=== PATIENT | female | born 1980 | race Caucasian/White ===

== ENCOUNTER 2017-01-02 22:38 | Emergency (ER) | payer OTHER ==
[2017-01-03] MEDS ORDERED: diphenhydrAMINE 25 MG CAP As Ordered ONE (00:49)
[2017-01-03] MEDS ORDERED: predniSONE 20 MG TAB As Ordered ONE (00:49)
[2017-01-03] MEDS ORDERED: HYDROCORTISONE 1% CREAM 30 GM As Ordered ONE (00:50)
--- NOTE | 2017-01-03 01:01 | EDDOCDS ---
Physician Documentation [facility] Name: Sara William Age: 36 yrs Sex: Female : 1980 Arrival Date: 01/02/2017 Time: 22:38 Bed I2 / M2 Private MD: [facility], [place] - Adults Disposition: 01/03/17 00:48 Discharged to Home/Self Care. Impression: Rash and other nonspecific skin eruption - Diffuse. - Condition is Stable. - Discharge Instructions: Rash, [id number]. - Prescriptions for Benadryl 25 mg Oral Capsule - take 2 capsule by ORAL route every 6 hours As needed; 30 tablet. Prednisone 20 mg Oral Tablet - take 3 tablet by ORAL route once daily for 5 days; 15 tablet. - Medication Reconciliation, Local Pharmacy Hours form. - Follow up: Center - Adults [facility]; When: 1 - 2 days; Reason: Recheck today's complaints, Continuance of care. Follow up: Emergency Department; Reason: Worsening of conditions. - Problem is new. - Symptoms have improved. Historical: - Allergies: Amoxicillin; Morphine; PENICILLINS; - Home Meds: 1. control 2. unknown anxiety medication - PMHx: Anxiety; - PSHx: none; - Social history: Smoking status: Patient uses tobacco products, heavy tobacco smoker. No barriers to communication noted, The patient speaks fluent [place], Speaks appropriately for age. - Family history: Not pertinent. - : The pt / caregiver states he / she is not on anticoagulants. Home medication list is obtained from the patient. - Exposure Risk Screening:: None identified. 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 11 in. (149.86 cm) (M); Pain 9/10; 01/03 00:51 BP 126 / 81; Pulse 94; Resp 18; Temp 96.3; Pulse Ox 96% ; Pain 9/10; ajs 01/02 22:40 Body Mass Index 38.17 (85.73 kg, 149.86 cm) dem1 MDM: 00:47 predniSONE 60 mg PO once; administer with food or milk ordered. ef1 00:47 diphenhydrAMINE 50 mg PO once ordered. ef1 00:47 Hydrocortisone Cream 1 % 1 applic Topical once ordered. ef1 01:00 Financial registration complete. pm4 Administered Medications: 00:57 Drug: Hydrocortisone 1 applic [hydrocortisone 1 % topical cream (1 applic)] Route: yu Topical; Site: left forearm; 00:58 Drug: predniSONE 60 mg [prednisone 20 mg tablet (3 tabs)] Route: PO; yu 00:58 Drug: diphenhydrAMINE 50 mg [diphenhydramine 25 mg capsule (2 caps)] Route: PO; yu Signatures: Radha Gibbs, SHIRAC PAKuldipC ef1 Nils Vázquez RN RN Carlito Stokes, Reg Reg pm4 MTDD
--- NOTE | 2017-01-03 01:01 | EDDOCDS ---
Nurse's Notes [facility] Name: Sara William Age: 36 yrs Sex: Female : 1980 Arrival Date: 01/02/2017 Time: 22:38 Bed I2 / M2 Private MD: [facility] - Adults Diagnosis: Rash and other nonspecific skin eruption-Diffuse Presentation: 01/02 22:41 Presenting complaint: Patient states: Patient reports other day while sleeping, she jmb noted rash on top of head. Patient reports that she took benadryl and the area remains itching. Presenting complaint:. Onset: The symptoms/episode began/occurred 2 day(s) ago. This patient has not experienced a previous allergic reaction. Anaphylaxis evaluation, the patient reports or I have noted the following symptoms which indicate a significant risk of anaphylaxis: no signs or symptoms of anaphylaxis were noted. Adult Sepsis Screening: The patient does not have new or worsening altered mentation. Patient's respiratory rate is less than 22. Systolic blood pressure is greater than 100. Patient has a qSOFA score of 0- Negative Sepsis Screen. Suicide/Homicide risk assessment- the patient denies having any suicidal and/or homicidal ideations and does not present with any other emotional, behavioral or mental health complaints. 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 Transition of care: patient was not received from another setting of care. 22:41 Acuity: MINNA Level 4 [facility] 22:41 Method Of Arrival: Walkin/Carried/Asstd [facility] Triage Assessment: 22:44 General: Appears in no apparent distress. Pain: Denies pain. HIV screening NA for this [facility] visit Offered previously. Neurological: Level of Consciousness is awake, alert, obeys commands, Oriented to person, place, time, Speech is normal, Facial symmetry appears normal, Facial symmetry: tongue is midline. Respiratory: Airway is patent is compromised Respiratory effort is even, unlabored, Reports no respiratory complaints. Derm: Skin is pink, warm & dry. Musculoskeletal: Range of motion intact in all extremities. 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 control 2. unknown anxiety medication - PMHx: Anxiety; - PSHx: none; - Social history: Smoking status: Patient uses tobacco products, heavy tobacco smoker. No barriers to communication noted, The patient speaks fluent Ukrainian, Speaks appropriately for age. - Family history: Not pertinent. - : The pt / caregiver states he / she is not on anticoagulants. Home medication list is obtained from the patient. - Exposure Risk Screening:: None identified. Screenin/07 00:58 Screening information is obtained from the patient. Fall risk: No risks identified. jmb Assistance ADL's: requires no assistance with activities of daily living. Abuse/DV Screen: The patient / caregiver reports he/she is: not in a situation that causes fear, pain or injury. Nutritional screening: No deficits noted. Advance Directives: Currently, there is no health care proxy. There is no active DNR order. There is no living will. There is no Power of Netting Inspector. home support is adequate. Assessment: 00:58 General: Patient instructed on discharge instructions. Patient asked if there were any b questions regarding discharge, patient stated no. Patient signed discharge instructions. Patient discharged in stable condition. . Respiratory: Breath sounds are clear bilaterally. Vital Signs: 01/02 22:40 BP 90 / 60; Pulse 98; Resp 18; Temp 99.2(O); Pulse Ox 96% on R/A; Weight 85.73 kg (M); dem1 Height 4 ft. 11 in. (149.86 cm) (M); Pain 9/10; 01/03 00:51 BP 126 / 81; Pulse 94; Resp 18; Temp 96.3; Pulse Ox 96% ; Pain 9/10; ajs 01/02 22:40 Body Mass Index 38.17 (85.73 kg, 149.86 cm) [facility] Vitals: 01/02 22:40 Log In Time: January 02, 2017 at 22:38. [facility] ED Course: 22:39 Patient visited by Yahaira Calloway. dem1 22:39 Patient moved to Waiting dem1 22:40 [facility] - Pediatrics is Private Physician. dem1 22:40 [facility] - Adults is Private Physician. dem1 22:41 Patient moved to Pre RCE dem1 22:43 Triage Initiated jmb 01/03 00:02 [facility] 00:18 Patient moved to I2 / M2 ajs 00:27 Radha Gibbs PA-C is PHCP. ef1 00:27 Clyde Matias DO is Attending Physician. ef1 00:27 Patient visited by Radha Gibbs PA-C. ef1 00:48 [facility] is Referral Physician. ef1 00:51 Patient visited by Clara Landa. s 00:58 The patient / caregiver is instructed regarding the plan of care and ED course. jmb 00:58 No IV's were initiated during this patient's visit. No procedures done that require jmb assistance. Administered Medications: 00:57 Drug: Hydrocortisone 1 applic [hydrocortisone 1 % topical cream (1 applic)] Route: jmb Topical; Site: left forearm; 00:58 Drug: predniSONE 60 mg [prednisone 20 mg tablet (3 tabs)] Route: PO; jmb 00:58 Drug: diphenhydrAMINE 50 mg [diphenhydramine 25 mg capsule (2 caps)] Route: PO; jmb Order Results: There are currently no results for this order. Outcome: 00:48 Discharge ordered by Provider. ef1 00:58 Discharge Assessment: Patient awake, alert and oriented x 3. No cognitive and/or jmb functional deficits noted. Patient verbalized understanding of disposition instructions. Patient awake and alert. obeys commands, Oriented to person, place and time. Patient verbalized understanding of disposition instructions. Patient has no functional deficits. patient administered narcotics - no. The following High Risk Discharge criteria are identified: None. Discharged to home ambulatory. Condition: stable. Discharge instructions given to patient, Instructed on discharge instructions, follow up and referral plans. medication usage, Demonstrated understanding of instructions, medications, Pt was receptive of discharge instructions/ teaching. Prescriptions given X 2. No special radiology studies were completed. Property sent home with patient. 01:00 Patient left the ED. yu Signatures: Radha Gibbs PA-C PA-C ef1 Clara Landa Shannon, RN RN kurt1 Yahaira Calloway Joshua, RN RN jmb MTDD
--- NOTE | 2017-01-05 02:01 | EDDOCDS ---
Nurse's Notes [facility] Name: Sara William Age: 36 yrs Sex: Female : 1980 Arrival Date: 01/02/2017 Time: 22:38 Bed I2 / M2 Private MD: [facility] - Adults Diagnosis: Rash and other nonspecific skin eruption-Diffuse Presentation: 01/02 22:41 Presenting complaint: Patient states: Patient reports other day while sleeping, she jmb noted rash on top of head. Patient reports that she took benadryl and the area remains itching. Presenting complaint:. Onset: The symptoms/episode began/occurred 2 day(s) ago. This patient has not experienced a previous allergic reaction. Anaphylaxis evaluation, the patient reports or I have noted the following symptoms which indicate a significant risk of anaphylaxis: no signs or symptoms of anaphylaxis were noted. Adult Sepsis Screening: The patient does not have new or worsening altered mentation. Patient's respiratory rate is less than 22. Systolic blood pressure is greater than 100. Patient has a qSOFA score of 0- Negative Sepsis Screen. Suicide/Homicide risk assessment- the patient denies having any suicidal and/or homicidal ideations and does not present with any other emotional, behavioral or mental health complaints. 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 Transition of care: patient was not received from another setting of care. 22:41 Acuity: MINNA Level 4 [facility] 22:41 Method Of Arrival: Walkin/Carried/Asstd [facility] Triage Assessment: 22:44 General: Appears in no apparent distress. Pain: Denies pain. HIV screening NA for this [facility] visit Offered previously. Neurological: Level of Consciousness is awake, alert, obeys commands, Oriented to person, place, time, Speech is normal, Facial symmetry appears normal, Facial symmetry: tongue is midline. Respiratory: Airway is patent is compromised Respiratory effort is even, unlabored, Reports no respiratory complaints. Derm: Skin is pink, warm & dry. Musculoskeletal: Range of motion intact in all extremities. 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 control 2. unknown anxiety medication - PMHx: Anxiety; - PSHx: none; - Social history: Smoking status: Patient uses tobacco products, heavy tobacco smoker. No barriers to communication noted, The patient speaks fluent Amharic, Speaks appropriately for age. - Family history: Not pertinent. - : The pt / caregiver states he / she is not on anticoagulants. Home medication list is obtained from the patient. - Exposure Risk Screening:: None identified. Screenin/07 00:58 Screening information is obtained from the patient. Fall risk: No risks identified. jmb Assistance ADL's: requires no assistance with activities of daily living. Abuse/DV Screen: The patient / caregiver reports he/she is: not in a situation that causes fear, pain or injury. Nutritional screening: No deficits noted. Advance Directives: Currently, there is no health care proxy. There is no active DNR order. There is no living will. There is no Power of Service Line Coordinator. home support is adequate. Assessment: 00:58 General: Patient instructed on discharge instructions. Patient asked if there were any b questions regarding discharge, patient stated no. Patient signed discharge instructions. Patient discharged in stable condition. . Respiratory: Breath sounds are clear bilaterally. Vital Signs: 01/02 22:40 BP 90 / 60; Pulse 98; Resp 18; Temp 99.2(O); Pulse Ox 96% on R/A; Weight 85.73 kg (M); dem1 Height 4 ft. 11 in. (149.86 cm) (M); Pain 9/10; 01/03 00:51 BP 126 / 81; Pulse 94; Resp 18; Temp 96.3; Pulse Ox 96% ; Pain 9/10; ajs 01/02 22:40 Body Mass Index 38.17 (85.73 kg, 149.86 cm) [facility] Vitals: 01/02 22:40 Log In Time: January 02, 2017 at 22:38. [facility] ED Course: 22:39 Patient visited by Yahaira Calloway. dem1 22:39 Patient moved to Waiting dem1 22:40 [facility] - [facility] is Private Physician. dem1 22:40 [facility] - Adults is Private Physician. dem1 22:41 Patient moved to Pre RCE dem1 22:43 Triage Initiated jmb 01/03 00:02 Patient moved to [facility] Wait sls1 00:18 Patient moved to I2 / M2 ajs 00:27 Radha Gibbs PA-C is PHCP. ef1 00:27 Clyde Matias DO is Attending Physician. ef1 00:27 Patient visited by Radha Gibbs PA-C. ef1 00:48 [facility] is Referral Physician. ef1 00:51 Patient visited by Clara Landa. ajs 00:58 The patient / caregiver is instructed regarding the plan of care and ED course. jmb 00:58 No IV's were initiated during this patient's visit. No procedures done that require jmb assistance. 01:18 [facility] Payment Agreement was scanned into [facility] and attached to record. hs2 11:05 T-Sheet-- Draft Copy was scanned into [facility] and attached to record. gb Administered Medications: 00:57 Drug: Hydrocortisone 1 applic [hydrocortisone 1 % topical cream (1 applic)] Route: jmb Topical; Site: left forearm; 00:58 Drug: predniSONE 60 mg [prednisone 20 mg tablet (3 tabs)] Route: PO; jmb 00:58 Drug: diphenhydrAMINE 50 mg [diphenhydramine 25 mg capsule (2 caps)] Route: PO; b Order Results: There are currently no results for this order. Outcome: 00:48 Discharge ordered by Provider. ef1 00:58 Discharge Assessment: Patient awake, alert and oriented x 3. No cognitive and/or jmb functional deficits noted. Patient verbalized understanding of disposition instructions. Patient awake and alert. obeys commands, Oriented to person, place and time. Patient verbalized understanding of disposition instructions. Patient has no functional deficits. patient administered narcotics - no. The following High Risk Discharge criteria are identified: None. Discharged to home ambulatory. Condition: stable. Discharge instructions given to patient, Instructed on discharge instructions, follow up and referral plans. medication usage, Demonstrated understanding of instructions, medications, Pt was receptive of discharge instructions/ teaching. Prescriptions given X 2. No special radiology studies were completed. Property sent home with patient. 01:00 Patient left the ED. jmb Signatures: Jessica Bell, Reg Reg gb Radha Gibbs PA-C PA-C ef1 Clara Landa ajs Patricia Restrepo, RN RN sls1 Yahaira Calloway dem1 Nils Vázquez RN RN jmb Juany Monson, Reg Reg hs2 Chart Complete MTDD
--- NOTE | 2017-01-05 02:01 | EDDOCDS ---
Physician Documentation [facility] Name: Sara William Age: 36 yrs Sex: Female : 1980 Arrival Date: 01/02/2017 Time: 22:38 Bed I2 / M2 Private MD: [facility], [place] - Adults Disposition: 01/03/17 00:48 Discharged to Home/Self Care. Impression: Rash and other nonspecific skin eruption - Diffuse. - Condition is Stable. - Discharge Instructions: Rash, [id number]. - Prescriptions for Benadryl 25 mg Oral Capsule - take 2 capsule by ORAL route every 6 hours As needed; 30 tablet. Prednisone 20 mg Oral Tablet - take 3 tablet by ORAL route once daily for 5 days; 15 tablet. - Medication Reconciliation, Local Pharmacy Hours form. - Follow up: Center - Adults [facility]; When: 1 - 2 days; Reason: Recheck today's complaints, Continuance of care. Follow up: Emergency Department; Reason: Worsening of conditions. - Problem is new. - Symptoms have improved. Historical: - Allergies: Amoxicillin; Morphine; PENICILLINS; - Home Meds: 1. control 2. unknown anxiety medication - PMHx: Anxiety; - PSHx: none; - Social history: Smoking status: Patient uses tobacco products, heavy tobacco smoker. No barriers to communication noted, The patient speaks fluent Burundian, Speaks appropriately for age. - Family history: Not pertinent. - : The pt / caregiver states he / she is not on anticoagulants. Home medication list is obtained from the patient. - Exposure Risk Screening:: None identified. 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 11 in. (149.86 cm) (M); Pain 9/10; 01/03 00:51 BP 126 / 81; Pulse 94; Resp 18; Temp 96.3; Pulse Ox 96% ; Pain 9/10; ajs 01/02 22:40 Body Mass Index 38.17 (85.73 kg, 149.86 cm) dem1 MDM: 00:47 predniSONE 60 mg PO once; administer with food or milk ordered. ef1 00:47 diphenhydrAMINE 50 mg PO once ordered. ef1 00:47 Hydrocortisone Cream 1 % 1 applic Topical once ordered. ef1 01:00 Financial registration complete. pm4 01:18 [facility] Payment Agreement was scanned into [employer] and attached to record. hs2 11:05 T-Sheet-- Draft Copy was scanned into [employer] and attached to record. gb Administered Medications: 00:57 Drug: Hydrocortisone 1 applic [hydrocortisone 1 % topical cream (1 applic)] Route: yu Topical; Site: left forearm; 00:58 Drug: predniSONE 60 mg [prednisone 20 mg tablet (3 tabs)] Route: PO; yu 00:58 Drug: diphenhydrAMINE 50 mg [diphenhydramine 25 mg capsule (2 caps)] Route: PO; yu Signatures: Jessica Bell, Reg Reg gb Radha Gibbs, PA-C PA-C ef1 Nils Vázquez RN RN jmb Juany Monson, Reg Reg hs2 Carlito Dale, Reg Reg pm4 The chart was reviewed and I authenticate all verbal orders and agree with the evaluation and treatment provided.Attachments: 01:18 [facility] Payment Agreement hs2 11:05 T-Sheet-- Draft Copy gb Chart Complete MTDD
--- NOTE | 2017-01-05 02:01 | EDDOCDS ---
Physician Documentation [facility] Name: Sara William Age: 36 yrs Sex: Female : 1980 Arrival Date: 01/02/2017 Time: 22:38 Bed I2 / M2 Private MD: [facility], [place] - Adults Disposition: 01/03/17 00:48 Discharged to Home/Self Care. Impression: Rash and other nonspecific skin eruption - Diffuse. - Condition is Stable. - Discharge Instructions: Rash, [id number]. - Prescriptions for Benadryl 25 mg Oral Capsule - take 2 capsule by ORAL route every 6 hours As needed; 30 tablet. Prednisone 20 mg Oral Tablet - take 3 tablet by ORAL route once daily for 5 days; 15 tablet. - Medication Reconciliation, Local Pharmacy Hours form. - Follow up: Center - Adults [facility]; When: 1 - 2 days; Reason: Recheck today's complaints, Continuance of care. Follow up: Emergency Department; Reason: Worsening of conditions. - Problem is new. - Symptoms have improved. Historical: - Allergies: Amoxicillin; Morphine; PENICILLINS; - Home Meds: 1. control 2. unknown anxiety medication - PMHx: Anxiety; - PSHx: none; - Social history: Smoking status: Patient uses tobacco products, heavy tobacco smoker. No barriers to communication noted, The patient speaks fluent Mauritanian, Speaks appropriately for age. - Family history: Not pertinent. - : The pt / caregiver states he / she is not on anticoagulants. Home medication list is obtained from the patient. - Exposure Risk Screening:: None identified. 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 11 in. (149.86 cm) (M); Pain 9/10; 01/03 00:51 BP 126 / 81; Pulse 94; Resp 18; Temp 96.3; Pulse Ox 96% ; Pain 9/10; ajs 01/02 22:40 Body Mass Index 38.17 (85.73 kg, 149.86 cm) dem1 MDM: 00:47 predniSONE 60 mg PO once; administer with food or milk ordered. ef1 00:47 diphenhydrAMINE 50 mg PO once ordered. ef1 00:47 Hydrocortisone Cream 1 % 1 applic Topical once ordered. ef1 01:00 Financial registration complete. pm4 01:18 [facility] Payment Agreement was scanned into [employer] and attached to record. hs2 11:05 T-Sheet-- Draft Copy was scanned into [employer] and attached to record. gb Administered Medications: 00:57 Drug: Hydrocortisone 1 applic [hydrocortisone 1 % topical cream (1 applic)] Route: yu Topical; Site: left forearm; 00:58 Drug: predniSONE 60 mg [prednisone 20 mg tablet (3 tabs)] Route: PO; yu 00:58 Drug: diphenhydrAMINE 50 mg [diphenhydramine 25 mg capsule (2 caps)] Route: PO; uy Signatures: Jessica Bell, Reg Reg gb Radha Gibbs, PA-C PA-C ef1 Nils Vázquez RN RN jmb Juany Monson, Reg Reg hs2 Carlito Dale, Reg Reg pm4 The chart was reviewed and I authenticate all verbal orders and agree with the evaluation and treatment provided.Attachments: 01:18 [facility] Payment Agreement hs2 11:05 T-Sheet-- Draft Copy gb Chart Complete MTDD
== END 2017-01-03 01:00 | disposition home or self-care (01) ==
LOC: M ED 22:38
DX: R21 Rash and other nonspecific skin eruption (principal); F41.9 Anxiety disorder, unspecified; Z72.0 Tobacco use; Z79.3 Long term (current) use of hormonal contraceptives; Z79.899 Other long term (current) drug therapy; Z88.0 Allergy status to penicillin; Z88.5 Allergy status to narcotic agent

== ENCOUNTER → 2017-03-10 | Outpatient (CLI) | payer OTHER, MEDICAID ==
[2017-03-10 16:42] LABS: ALBUMIN 3.7 GM/DL (3.2-5.2); ALBUMIN/GLOBULIN RATIO 1.16 (1.00-1.93); ALKALINE PHOSPHATASE 62 U/L (45-117); ALT/SGPT 23 U/L (12-78); ANION GAP 7 MEQ/L (8-16); AST/SGOT 9 U/L (15-37); BILIRUBIN,TOTAL 0.6 MG/DL (0.2-1.0); BLOOD UREA NITROGEN 13 MG/DL (7-18); CALCIUM LEVEL 8.8 MG/DL (8.5-10.1); CARBON DIOXIDE LEVEL 28 MEQ/L (21-32); CHLORIDE LEVEL 105 MEQ/L (98-107); CHOLESTEROL LEVEL 123 MG/DL (<200); GLOMERULAR FILTRATION RATE > 60.0 (>60); GLUCOSE, FASTING 83 MG/DL (70-105); POTASSIUM SERUM 4.2 MEQ/L (3.5-5.1); SODIUM LEVEL 140 MEQ/L (136-145); TOTAL PROTEIN 6.9 GM/DL (6.4-8.2); TRIGLYCERIDES LEVEL 187 MG/DL (<150)
== END ==
LOC: M LAB 15:38
PROVIDERS: ATTEND Family Medicine Addiction Medicine
DX: Z68.38 Body mass index [BMI] 38.0-38.9, adult (principal)

== ENCOUNTER 2017-03-14 12:15 | Emergency (ER) | payer OTHER, MEDICAID ==
[~2017-03-14] VITALS: Ht 149.9 cm; Wt 83.5 kg
[2017-03-14] MEDS ORDERED: AMBI5TAB PO (12:30)
[2017-03-14] MEDS ORDERED: FLUO20CA9 (12:30)
[2017-03-14] MEDS ORDERED: IBUPROFEN 600 MG TAB PO ONE (13:45)
[2017-03-14] MEDS ORDERED: CIPR500T89 PO (14:27)
[2017-03-14] MEDS ORDERED: CIPROFLOXACIN 500 MG TAB PO ONE (14:30)
[2017-03-14 14:38] VITALS: BP 124/81
== END 2017-03-14 14:40 | disposition home or self-care (01) ==
LOC: M ED 13:45
DX: N39.0 Urinary tract infection, site not specified (principal); N93.9 Abnormal uterine and vaginal bleeding, unspecified

== ENCOUNTER → 2017-07-14 | Outpatient (REF) | payer OTHER ==
[~2017-07-14] MED LIST: AMBI5TAB PO; CIPR-249 PO; FLUO20CA19
== END ==
LOC: M SFHCWAGY 15:17
PROVIDERS: ATTEND Family Medicine
DX: Z11.3 Encounter for screening for infections with a predominantly sexual mode of transmission (principal); Z12.4 Encounter for screening for malignant neoplasm of cervix

== ENCOUNTER 2018-12-03 22:44 | Emergency (ER) | payer OTHER ==
[~2018-12-03] VITALS: Ht 149.9 cm; Wt 81.3 kg
[2018-12-03 22:45] VITALS: BP 136/89
[2018-12-03] MEDS ORDERED: AMBI5TAB PO (22:51)
[2018-12-04] MEDS ORDERED: chlorproMAZINE 25 MG TAB (Q0161) PO ONE (00:15)
== END 2018-12-04 00:31 | disposition home or self-care (01) ==
LOC: M ED 22:44
DX: F41.1 Generalized anxiety disorder (principal)
CPT/HCPCS: 99284; Q0161